=== PATIENT | male | born 2000 | race African-American/Black ===

== ENCOUNTER 2020-05-10 12:56 | Emergency (ER) | payer BC, SELFPAY ==
[2020-05-10 13:40] VITALS: BP 130/81; PULSE 91; RESP 19; TEMP 36.6; O2SAT 100; BMI 25.7
[2020-05-10 14:00] VITALS: BP 130/81; PULSE 91; RESP 19; TEMP 36.6; O2SAT 100
--- NOTE | 2020-05-10 14:10 | HMH.EDUTC ---
[facility] [place] Clinical Impression: Exposure to COVID-19 virus Disposition: Home, Self-Care Condition on Discharge: Good Instructions: Preventing the Spread of Coronavirus Discharge Instructions Additional Instructions: Drink plenty of fluids. Take tylenol for pain or fever. Return if you begin to have difficulty breathing. Follow up with your regular doctor. GO TO THE ER FOR ANY WORSENING SYMPTOMS Referrals: Johnnie Hamlin MD [Primary Care Provider] - Time of Disposition: 14:10 Medical Decision Making - Medical Records Medical records reviewed: No: I reviewed the patient's medical records. - Sanjiv Inquiry Pt receiving controlled substance: No Vital Signs: 05/10/20 13:40 05/10/20 14:00 Temperature 97.8 F 97.8 F Temperature Source Oral Pulse Rate 91 H Pulse Rate [Right Brachial] 91 H Respiratory Rate 19 19 Blood Pressure 130/81 Blood Pressure [Right Arm] 130/81 Blood Pressure Mean [Right Arm] 97 Blood Pressure Source [Right Arm] Automatic Cuff Blood Pressure Position [Right Arm] Sitting 02 Sat by Pulse Oximetry 100 Oxygen Delivery Method Room Air [facility] [place] - General Stated complaint: wants covid test Time Seen by Provider: 05/10/20 13:45 Mode of Arrival: Ambulatory Source of Information: Patient Limitations: No Limitations Description of Symptoms (Recalled from Triage Doc. by RN): PATIENT REQUESTING COVID TEST TO RETURN TO SCHOOL. DENIES EXPOSURE OR SYMPTOMS HEENT Symptoms (Recalled from RN notes): No Resp Symptoms (Recalled from RN notes): No Skin Symptoms (Recalled from RN notes): No MS Symptoms (Recalled from RN notes): No Functional Status (Recalled from RN notes): WNL - History of Present Illness Provider Complaint: He has been exposed to covid. he denies any complaints so far. - Related Data Allergies Allergy/AdvReac Type Severity Reaction Status Date / Time No Known Allergies Allergy Verified 09/28/17 12:35 - Worker's Comp Is this a Worker's Comp case?: No [facility] History - Hepatitis A Screen Drug use history?: No High risk sexual behaviors?: No History of sexually transmitted infection?: No Currently employed?: No Childcare worker?: No Do you have indoor plumbing?: Yes Do you have electricity?: Yes Attestation statement:: This patient has been screened for Hepatitis A risk factors. I have reviewed the patient's past medical history: Yes - Social History Alcohol Intake: never Occupational Status: other ROS Obtained: Yes All systems reviewed & no additional complaints - Constitutional Constitutional: Reports system reviewed and no additional complaints, except as docu - Eyes Eyes: Reports system reviewed and no additional complaints, except as docu - ENT Ears, Nose, Mouth, and Throat: Reports system reviewed and no additional complaints, except as docu - Cardiovascular Cardiovascular: Reports system reviewed and no additional complaints, except as docu - Respiratory Respiratory: Reports system reviewed and no additional complaints, except as docu - Gastrointestinal Gastrointestingal: Reports: system reviewed and no additional complaints, except as docu Physical Exam - General General appearance: alert, in no apparent distress - Head Head exam: atraumatic, normocephalic, normal inspection - Eye Eye exam: Present: normal appearance, PERRL, EOMI - ENT ENT exam: Present: normal exam, normal oropharynx, mucous membranes moist, TM's normal bilaterally, normal external ear exam - Neck Neck exam: Present: normal inspection, full ROM, trachea midline. Absent: meningismus, lymphadenopathy - Chest Chest inspection: Present: normal inspection, symmetric chest wall rise. Absent: tenderness - Respiratory Respiratory exam: Present: normal lung sounds bilaterally. Absent: respiratory distress - Cardiovascular Cardiovascular exam: Present: regular rate, normal rhythm. Absent: JVD - Abdominal Exam Abdominal exam: Prese
--- NOTE | 2020-05-10 20:18 | PC.NURSE ---
ATTEMPTED TO CALL PT. WENT STRAIGHT TO VOICEMAIL. WILL TRY AGAIN LATER
--- NOTE | 2020-05-11 10:13 | PC.NURSE ---
attempted to call pt again and went straight to voicemail
--- NOTE | 2020-05-11 10:15 | PC.NURSE ---
pt notified of positive covid result
== END 2020-05-10 14:13 | disposition home or self-care (01) ==
PROVIDERS: Emergency Provider Nurse Practitioner Family; PCP Family Medicine
DX: U07.1 COVID-19 (principal)
CPT/HCPCS: 99202; G0463; U0003

== ENCOUNTER → 2021-11-04 14:08 | Outpatient (POV) | payer BC, SELFPAY | PROVIDERS: Visit Provider Dermatology | DX: Z00.00 Encounter for general adult medical examination without abnormal findings (principal) ==

== ENCOUNTER 2022-02-24 05:04 | Emergency (ER) | payer BC, SELFPAY ==
--- NOTE | 2022-02-24 05:11 | HMH.EDGENADL ---
Discharge Plan Disposition Patient Disposition: Home, Self-Care Condition: Fair Prescriptions Prescriptions: New ibuprofen 600 mg tablet 600 mg PO TID PRN (Reason: pain) Qty: 20 0RF ondansetron 4 mg tablet,disintegrating 4 mg PO Q6H PRN (Reason: nausea and vomiting) Qty: 10 0RF Referrals Follow up/Referrals: Calderon Levin MD [Primary Care Provider] - See instructions Activity Restrictions/Add. Instructions Additional Instructions/Restrictions: You have been evaluated for fevers, chills, nausea, vomiting, diarrhea, diagnosed with a flulike illness. Please take anti-inflammatory medication like Tylenol or ibuprofen. Take Zofran for nausea. Follow-up with your primary care doctor in 1 to 2 days for symptom recheck. Rest and stay hydrated. Return to the emergency department at once for any new or worsening symptoms, headache, difficulty breathing, abdominal pain or any other concerns. Clinical Impressions Clinical Impression: Flu syndrome, Nausea, vomiting, and diarrhea Stand Alone Forms Stand Alone Forms: Work/School Release Instructions Patient Instructions: DI for Viral Syndrome Discharge ED Provider: Dora Rocha General Adult HPI General Chief complaint: Nausea/Vomiting/Diarrhea Stated complaint: diarrhea, nausea, fever, muscle weakness Time Seen by Provider: 02/24/22 05:06 History of Present Illness HPI narrative: 21-year-old male presenting to the emergency department with fever, chills, nausea, vomiting, diarrhea. Symptoms started two days ago. He felt generally unwell, body aches and chills. Took ibuprofen before bed. Throughout the day continued to feel unwell. Has tried to take sips of water and eat light food, but is having vomiting and diarrhea. Now unable to keep anything down. No other medications besides ibuprofen. Does not have pain in 1 particular part of the abdomen. No chest pain, cough, shortness of breath. 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 Related Data Previous Rx's Medication Instructions Recorded ibuprofen 600 mg tablet 600 mg PO TID PRN pain #20 tabs 02/24/22 ondansetron 4 mg disintegrating 4 mg PO Q6H PRN nausea and 02/24/22 tablet vomiting #10 tabs Allergies Allergy/AdvReac Type Severity Reaction Status Date / Time No Known Allergies Allergy Verified 09/28/17 12:35 PFSH PFSH Social History Smoking Status: Current every day smoker alcohol intake: never current occupational status: other Travel in the last 8 weeks: None ROS Obtained: Yes All systems reviewed & no additional complaints except as documented Constitutional Constitutional: Reports body ache, Reports chills, Reports fatigue, Reports fever(s) and Denies headache(s) Eyes Eyes: Denies blurry vision ENT Ears, Nose, Mouth, and Throat: Denies headache(s), Reports nasal congestion, Denies neck pain and Denies sore throat Cardiovascular Cardiovascular: Denies chest pain and Denies palpitations Respiratory Respiratory: Denies cough and Denies wheezing Gastrointestinal Gastrointestingal: Reports diarrhea, nausea and vomiting; Denies abdominal pain Musculoskeletal Musculoskeletal: Denies back pain, Denies muscle weakness, Reports myalgias and Denies neck pain Integumentary/Breasts Skin/Breast: Denies redness and Denies rash Neurologic Neurologic: Denies headache(s) Endocrine Endocrine: Reports fatigue and Denies palpitations Allergic/Immunologic Allergic/Immunologic: Denies wheezing Physical Exam General General appearance: alert and in no apparent distress Head Head exam: atraumatic and normocephalic Eye Eye exam: Present normal appearance and EOMI; Absent conjunctival redness ENT ENT exam: Present normal exam and mucous membranes dry Chest Chest inspection: Present normal inspection and symmetric chest wall rise Respiratory Respiratory exam: Present normal lung sounds bilaterally; Absent respiratory distress or wheezes
[2022-02-24 05:15] VITALS: BP 124/66; PULSE 100; RESP 18; TEMP 37.3; O2SAT 96; BMI 24.3
[2022-02-24 06:00] VITALS: BP 125/61; PULSE 73; O2SAT 97
[2022-02-24 06:16] LABS: Coronavirus 19, PCR Not Detected (NotDetected); Influenza A, PCR Not Detected (NotDetected); Influenza B, PCR Not Detected (NotDetected)
[2022-02-24 06:22] LABS: Basophils % 0.3 % (0.1-2.0); Chloride 100 mmol/L (98-107); Eosinophils # 0.1 K/mm3 (0.0-0.4); Eosinophils % 1.4 % (0.1-12.0); Hematocrit 49.3 % (42.0-52.0); Hemoglobin 16.7 g/dL (14.1-18.0); Lymphocytes # 0.6 K/mm3 (0.7-4.5); Lymphocytes % 8.1 % (10-50); Mean Corpuscular Hemoglobin 32.5 pg (27.0-31.2); Mean Corpuscular Volume 95.8 fl (80-94); Mean Platelet Volume 9.4 fl (7.4-10.4); Monocytes # 0.3 K/mm3 (0.1-1.0); Monocytes % 3.1 % (1.7-9.3); Neutrophils # 6.8 K/mm3 (1.8-7.8); Neutrophils % 87.1 % (37.0-80.0); Platelet Count 176 K/mm3 (142-424); Potassium 4.1 mmoL/L (3.5-5.1); Red Blood Count 5.15 M/mm3 (4.60-6.20); Sodium 137 mmol/L (136-145); White Blood Count 7.8 K/mm3 (4.8-10.8)
[2022-02-24 06:24] LABS: MANUAL DIFFERENTIAL MANUAL DIFFERENTIAL (MANUAL DIFF)
[2022-02-24 06:25] LABS: Blood Urea Nitrogen 15 mg/dl (9-20); Calcium 8.8 mg/dl (8.4-10.2); Creatinine Clearance Estimated 117 mL/min (50-200); Estimated Glomerular Filt Rate 75 ml/min (>60); GFR (African American) 91 ML/MIN (>60); Glucose 121 mg/dl (74-100); Lipase 298 U/L (23-300)
--- NOTE | 2022-02-24 06:37 | PC.NURSE ---
Pt resting in bed comfortably. No needs or complaints voiced.
[2022-02-24 07:01] VITALS: BP 122/53; PULSE 82; O2SAT 98
[2022-02-24 07:09] VITALS: BP 122/56; PULSE 82; RESP 18; TEMP 36.6; O2SAT 98
[2022-02-24 07:09] LABS: Eosinophils % 1 % (0-3); Lymphocytes % 9 % (10-50); Monocytes % 3 % (2-9); Neutrophils % 87 % (42-76); Total Cells Counted 100
[2022-02-24 07:10] LABS: Platelet Estimate Normal; RBC Morphology Normal
[2022-02-24 07:41] LABS: Anion Gap 14.1 mEq/L (5-15); Carbon Dioxide 27 mmol/L (22.0-30.0)
== END 2022-02-24 07:12 | disposition home or self-care (01) ==
PROVIDERS: Emergency Provider Emergency Medicine; PCP Family Medicine
DX: R11.2 Nausea with vomiting, unspecified (principal); R19.7 Diarrhea, unspecified; J11.1 Influenza due to unidentified influenza virus with other respiratory manifestations
CPT/HCPCS: 80048; 83690; 85007; 85025; 96365; 96375; 99284; C9803; J2405; U0003; U0005

== ENCOUNTER 2022-08-25 13:45 | Emergency (ER) | payer BC, SELFPAY ==
[2022-08-25 14:33] VITALS: BP 140/78; PULSE 76; RESP 18; TEMP 36.9; O2SAT 98; BMI 26.2
[2022-08-25 14:33] LABS: Microscopic, Urine URINE MICROSCOPIC (MICROSCOPIC)
--- NOTE | 2022-08-25 14:39 | EXP.UTC ---
Discharge Plan Disposition Patient Disposition: Home, Self-Care Condition: Good Prescriptions Prescriptions: No Action ibuprofen 600 mg tablet 600 mg PO TID PRN (Reason: pain) Qty: 20 0RF ondansetron 4 mg tablet,disintegrating 4 mg PO Q6H PRN (Reason: nausea and vomiting) Qty: 10 0RF Referrals Follow up/Referrals: Johnnie Hamlin MD [Primary Care Provider] - See instructions Activity Restrictions/Add. Instructions Additional Instructions/Restrictions: Your test results should be back in the next 5-7 days make sure to follow up for your results Return if needed Straight to ER if any life threatening symptoms Clinical Impressions Clinical Impression: Screening examination for STD (sexually transmitted disease) Instructions Patient Instructions: Chlamydia, DI for Gonorrhea Discharge ED Provider: Aurelia Tim [facility] General Stated complaint: STI testing, no symptoms Mode of Arrival: Ambulatory Source of Information: Patient Limitations: No Limitations Time Seen by Provider: 08/25/22 14:39 Description of Symptoms (Recalled from Triage Doc. by RN): pt requests testing for STIs. pt states he has not had any exposure that he is aware of and is not having any s/sx. HEENT Symptoms (Recalled from RN notes): No Resp Symptoms (Recalled from RN notes): No Skin Symptoms (Recalled from RN notes): No MS Symptoms (Recalled from RN notes): No Functional Status (Recalled from RN notes): wnl History of Present Illness Provider Complaint: Patient states that he wanted to get tested for STI States that he hasnt been exposed that he is aware of and not having any symptoms Related Data Previous Rx's Medication Instructions Recorded ibuprofen 600 mg tablet 600 mg PO TID PRN pain #20 tabs 02/24/22 ondansetron 4 mg disintegrating 4 mg PO Q6H PRN nausea and 02/24/22 tablet vomiting #10 tabs Allergies Allergy/AdvReac Type Severity Reaction Status Date / Time cefaclor [From [facility]] Allergy Verified 08/25/22 14:36 Worker's Comp Is this a Worker's Comp case?: No [facility] Disclaimer: The information contained in this section may have been updated after the patient was seen, as this information can be updated by other users. Social History Smoking Status: Current every day smoker alcohol intake: never current occupational status: other Travel in the last 8 weeks: None ROS Obtained: Yes All systems reviewed & no additional complaints except as documented and Yes Systems reviewed as appropriate & no additional complaints except as documented Constitutional Constitutional: Reports system reviewed and no additional complaints, except as documented, Reports as per HPI and Denies fever(s) ENT Ears, Nose, Mouth, and Throat: Reports system reviewed and no additional complaints, except as documented and Reports as per HPI Cardiovascular Cardiovascular: Reports system reviewed and no additional complaints, except as documented and Reports as per HPI Respiratory Respiratory: Reports system reviewed and no additional complaints, except as documented and Reports as per HPI Gastrointestinal Gastrointestingal: Reports system reviewed and no additional complaints, except as documented and as per HPI Genitourinary Male Genitourinary: Reports system reviewed and no additional complaints, except as documented, Reports as per HPI, Denies difficulty urinating, Denies difficulty with ejaculations, Denies penile ulceration, Denies genital pain, Denies hematuria, Denies painful ejaculations, Denies penile discharge, Denies testicular pain and Denies urinary hesitancy Physical Exam General General appearance: alert and in no apparent distress Respiratory Respiratory exam: Present normal lung sounds bilaterally; Absent respiratory distress or wheezes Cardiovascular Cardiovascular exam: Present regular rate, normal rhythm and normal heart sounds Abdominal Exam Abdominal exam: Present soft and normal bowel sounds; Absent
[2022-08-25 14:45] VITALS: BP 140/78; PULSE 76; RESP 18; TEMP 36.9
[2022-08-25 15:10] LABS: Appearance,Urine CLEAR (Clear); Bilirubin,Urine Negative (Negative); Blood, Urine Negative (Negative); Color,Urine YELLOW (Yellow); Glucose,Urine (UA) Negative (Negative); Ketones,Urine Negative (Negative); Leukocyte Esterase,Urine Negative (Negative); Nitrate,Urine Negative (Negative); Protein,Urine Negative (Negative); Specific Gravity, Urine 1.025 (1.005-1.030); Urobilinogen,Urine 0.2 EU/dl (0.2)
[2022-08-25 15:38] LABS: RBC,Urine Occasional #/hpf (0-3); WBC,Urine Occasional #/hpf (0-3)
[2022-08-25 15:39] LABS: Bacteria,Urine Trace /lpf; Squamous Epithelial Cell,Urine Occasional #/hpf (0-5)
[2022-08-27 22:08] LABS: Neisseria gonorrhoeae, NAA Negative (Negative)
== END 2022-08-25 14:51 | disposition home or self-care (01) ==
PROVIDERS: Emergency Provider Nurse Practitioner; PCP Family Medicine
DX: Z11.3 Encounter for screening for infections with a predominantly sexual mode of transmission (principal)
CPT/HCPCS: 81001; 87086; 87491; 87591; 99212; G0463

== ENCOUNTER 2022-09-12 09:02 | Emergency (ER) | payer BC, SELFPAY ==
[2022-09-12 09:10] VITALS: BP 123/62; PULSE 72; RESP 22; TEMP 36.7; O2SAT 100; BMI 26.3
--- NOTE | 2022-09-12 09:26 | EXP.UTC ---
Discharge Plan Disposition Patient Disposition: Home, Self-Care Condition: Good Referrals Follow up/Referrals: Johnnie Hamlin MD [Primary Care Provider] - See instructions Activity Restrictions/Add. Instructions Additional Instructions/Restrictions: Make sure to follow up with your Family Doctor to discuss the results of this testing Test should be back in the next 5-7 days No sexual activitity until test back and negative straight to ER if any life threatening symptoms Health Dept may offer other testing Clinical Impressions Clinical Impression: Screening examination for STD (sexually transmitted disease) Instructions Patient Instructions: Facts About Sexually Transmitted Infections, How to Detect and Treat STDs, Chlamydia: The Silent STD Discharge ED Provider: Aurelia Tim [facility] General Stated complaint: STD testing Mode of Arrival: Ambulatory Source of Information: Patient Limitations: No Limitations Time Seen by Provider: 09/12/22 09:26 Description of Symptoms (Recalled from Triage Doc. by RN): PATIENT REQUESTING TESTING FOR HEPATITIS AND HERPES. DENIES SYMPTOMS HEENT Symptoms (Recalled from RN notes): No Resp Symptoms (Recalled from RN notes): No Skin Symptoms (Recalled from RN notes): No MS Symptoms (Recalled from RN notes): No Functional Status (Recalled from RN notes): WNL History of Present Illness Provider Complaint: Patient states that he was tested for Chlamydia and Gonorrhea and they was negative States that he really thinks he may have a STD and wanted tested again and also wanted to get tested for Herpes and Hepatitis States that he may be over thinking it Denies any symptoms denies any lesions Related Data Allergies Allergy/AdvReac Type Severity Reaction Status Date / Time cefaclor [From Ceclor] Allergy Verified 08/25/22 14:36 Worker's Comp Is this a Worker's Comp case?: No [facility] Disclaimer: The information contained in this section may have been updated after the patient was seen, as this information can be updated by other users. Surgical History (Updated 09/12/22 @ 09:24 by Marina Gutierrez RN) History of tonsillectomy Social History Smoking Status: Current every day smoker alcohol intake: never current occupational status: other Travel in the last 8 weeks: None ROS Obtained: Yes All systems reviewed & no additional complaints except as documented and Yes Systems reviewed as appropriate & no additional complaints except as documented Constitutional Constitutional: Reports system reviewed and no additional complaints, except as documented and Reports as per HPI ENT Ears, Nose, Mouth, and Throat: Reports system reviewed and no additional complaints, except as documented and Reports as per HPI Cardiovascular Cardiovascular: Reports system reviewed and no additional complaints, except as documented and Reports as per HPI Respiratory Respiratory: Reports system reviewed and no additional complaints, except as documented and Reports as per HPI Gastrointestinal Gastrointestingal: Reports system reviewed and no additional complaints, except as documented and as per HPI; Denies abdominal pain, nausea or vomiting Genitourinary Male Genitourinary: Reports system reviewed and no additional complaints, except as documented, Reports as per HPI, Denies difficulty urinating, Denies difficulty with ejaculations, Denies penile ulceration, Denies genital lesions, Denies penile discharge, Denies scrotal swelling, Denies testicular pain, Denies urinary frequency and Denies urinary hesitancy Physical Exam General General appearance: alert and in no apparent distress Respiratory Respiratory exam: Present normal lung sounds bilaterally; Absent respiratory distress or wheezes Cardiovascular Cardiovascular exam: Present regular rate, normal rhythm and normal heart sounds Abdominal Exam Abdominal exam: Present soft and normal bowel sounds; Absent distention or tenderness
[2022-09-12 09:34] VITALS: BP 123/62; PULSE 72; RESP 22; TEMP 36.7; O2SAT 100
[2022-09-13 08:27] LABS: HSV 1 IgG, Type Spec <0.91 index (0.00-0.90); HSV 2 IgG, Type Spec <0.91 index (0.00-0.90)
[2022-09-13 09:14] LABS: HBsAg Screen Negative (Negative); HCV Ab Non Reactive (Non Reactive); Hep A Ab, IGM Negative (Negative); Hep B Core Ab, IgM Negative (Negative)
[2022-09-14 21:13] LABS: Neisseria gonorrhoeae, NAA Negative (Negative)
== END 2022-09-12 10:00 | disposition home or self-care (01) ==
PROVIDERS: Emergency Provider Nurse Practitioner; PCP Family Medicine
DX: Z11.3 Encounter for screening for infections with a predominantly sexual mode of transmission (principal)
CPT/HCPCS: 80074; 86695; 86790; 87491; 87591; 99212; 99213; G0463